=== PATIENT | male | born 1980 | race Caucasian/White ===

== ENCOUNTER 2019-01-27 17:09 | Emergency (ER) | payer OTHER ==
[2019-01-27 17:20] VITALS: BP 135/81; PULSE 108; RESP 18; TEMP 98.1
--- NOTE | 2019-01-27 17:55 | ED ---
General Adult HPI - General Chief complaint: Wound/Laceration Stated complaint: Bed frame fell on his head Source: patient, RN notes reviewed Mode of arrival: ambulatory Limitations: no limitations - History of Present Illness Initial comments: 38-year-old male with a past medical history of hyperlipidemia, seizure disorder presents to the emergency room for a chief of head injury. Patient states that about an hour prior to arrival he was carrying a bed frame with someone that was tolerable and him. States the frame was over his head. States that actually slipped and fell hitting him in the head. Patient did not lose consciousness. Patient does not have a headache. No blood thinners. Patient is up-to-date on tetanus in the past 5 years.Patient has no other complaints at this time including shortness of breath, chest pain, abdominal pain, nausea or vomiting, headache, or visual changes. - Related Data Allergies Allergy/AdvReac Type Severity Reaction Status Date / Time No Known Allergies Allergy Verified 01/27/19 17:20 Review of Systems ROS Statement: Those systems with pertinent positive or pertinent negative responses have been documented in the HPI. ROS Other: All systems not noted in ROS Statement are negative. Past Medical History Past Medical History: Hyperlipidemia, Seizure Disorder History of Any Multi-Drug Resistant Organisms: None Reported Past Surgical History: No Surgical Hx Reported Past Psychological History: No Psychological Hx Reported Smoking Status: Never smoker Past Alcohol Use History: None Reported Past Drug Use History: None Reported General Exam Limitations: no limitations General appearance: alert, in no apparent distress Head exam: Present: normocephalic. Absent: atraumatic (Laceration present to the left anterior scalp. This is about 5 cm. Deep structures intact.) Eye exam: Present: normal appearance, PERRL, EOMI. Absent: scleral icterus, conjunctival injection, periorbital swelling ENT exam: Present: normal exam, mucous membranes moist Neck exam: Present: normal inspection, full ROM. Absent: tenderness, meningismus, lymphadenopathy Respiratory exam: Present: normal lung sounds bilaterally. Absent: respiratory distress, wheezes, rales, rhonchi, stridor Cardiovascular Exam: Present: regular rate, normal rhythm, normal heart sounds. Absent: systolic murmur, diastolic murmur, rubs, gallop, clicks Neurological exam: Present: alert, oriented X3, CN II-XII intact, normal gait, other (gcs 15) Course Vital Signs 01/27/19 17:15 Temperature 98.1 F Pulse Rate 108 H Respiratory 18 Rate Blood Pressure 135/81 O2 Sat by Pulse 96 Oximetry Procedures - Laceration Laceration #1 Consent Obtained: verbal consent Indication: laceration Site: scalp Size (cm): 5 Description: linear Depth: simple, single layer Pre-repair: wound explored, irrigated extensively (with salne pressure irrigation), deep structures intact Type of Sutures: other (snow) Number of Sutures: 5 Technique: simple, interrupted Patient Tolerated Procedure: well, no complications Medical Decision Making - Medical Decision Making 38-year-old male presents for laceration to the scalp. Patient states that a bed frame hit him in the head when his friend was tolerable him was holding about him. No loss of consciousness. No headache. No neck pain. Patient states he is only here for laceration repair. I recommended CT however he refused this. He is aware of the risks. Wound was cleaned thoroughly. It was then repaired with snow. I did offer to numb the area which he refused. Tetanus is up-to-date. Discussed return parameters including those for infection and head injury. Discussed following up with primary care in 1-2 days. Disposition Clinical Impression: Laceration Disposition: HOME SELF-CARE Condition: Good Instructions (If sedation given, give patient instructions): Laceration (ED), Head Injury (ED) Additional Instructions: Please take Tylenol for pain. Monitor for signs of infection and return if these occur. Return if you have any other worsening symptoms such as severe headache, confusion, vomiting. Otherwise follow-up with primary care in 1-2 days for wound recheck. Return in 7-10 days for staple removal. Is patient prescribed a controlled substance at d/c from ED?: No Referrals: Nonstaff,Physician [Primary Care Provider] - 1-2 days Time of Disposition: 17:54
== END 2019-01-27 17:58 | disposition home or self-care (01) ==
LOC: EC 17:09
DX: S01.01XA Laceration without foreign body of scalp, initial encounter (principal); W20.8XXA Other cause of strike by thrown, projected or falling object, initial encounter
CPT/HCPCS: 12002; 99283

== ENCOUNTER 2019-02-22 16:35 | Emergency (ER) | payer OTHER ==
[2019-02-22] MEDS ORDERED: SODIUM CHLORIDE 0.9% 1,000 ML IV STA (17:06)
[2019-02-22] MEDS ORDERED: FLUoxetine HCL 20 MG CAP PO STA (17:06)
[2019-02-22] MEDS ORDERED: carBAMazepine 200 MG TAB PO STA (17:06)
[2019-02-22 17:48] LABS: Basophils % (A) 0 %; Eosinophils # (A) 0.2 k/uL (0-0.7); Eosinophils % (A) 5 %; HCT 44.3 % (39.0-53.0); HGB 15.6 gm/dL (13.0-17.5); Lymphocytes # (A) 1.9 k/uL (1.0-4.8); Lymphocytes % (A) 41 %; MCH 30.3 pg (25.0-35.0); MCHC 35.1 g/dL (31.0-37.0); MCV 86.2 fL (80.0-100.0); Mean Platelet Volume 7.3; Monocytes # (A) 0.2 k/uL (0-1.0); Monocytes % (A) 5 %; Neutrophils # (A) 2.2 k/uL (1.3-7.7); Neutrophils % (A) 48 %; Platelet Count 222 k/uL (150-450); RBC 5.14 m/uL (4.30-5.90); WBC 4.6 k/uL (3.8-10.6)
[2019-02-22 17:53] LABS: Appearance,Urine Clear (Clear); Bilirubin,Urine Negative (Negative); Blood,Urine Negative (Negative); Color,Urine Yellow; Glucose,Urine (UA) Negative (Negative); Ketones,Urine Negative (Negative); Leukocyte Esterase,Urine Negative (Negative); Nitrite,Urine Negative (Negative); Protein,Urine Trace (Negative); Specific Gravity,Urine 1.026 (1.001-1.035); Urobilinogen,Urine <2.0 mg/dL (<2.0)
[2019-02-22 17:54] LABS: Prothrombin Time 10.8 sec (9.0-12.0)
--- NOTE | 2019-02-22 17:59 | ED ---
Dizziness HPI - General Chief Complaint: Dizziness Stated Complaint: medication refill Time Seen by Provider: 02/22/19 16:54 Source: patient, RN notes reviewed, old records reviewed Mode of arrival: ambulatory Limitations: no limitations - History of Present Illness Initial Comments: Patient's a 38-year-old male presents emergency room stay with dizziness and lightheadedness. Patient reports that he has been out of his seizure medication 2 days. He reports his Tegretol. He is also been out of Prozac for a month. Patient reports that he is just been feeling highly emotional. Patient states that he has had some episodes of blurry vision, also complains of some occasional abdominal pains, multiple complaints. Patient states that he's had no fevers or chills. - Related Data Previous Rx's Medication Instructions Recorded FLUoxetine HCL [PROzac] 40 mg PO DAILY #14 cap 02/22/19 carBAMazepine [TEGretol] 400 mg PO Q12H #28 tablet 02/22/19 Allergies Allergy/AdvReac Type Severity Reaction Status Date / Time No Known Allergies Allergy Verified 02/22/19 16:44 Review of Systems ROS Statement: Those systems with pertinent positive or pertinent negative responses have been documented in the HPI. ROS Other: All systems not noted in ROS Statement are negative. Past Medical History Past Medical History: Hyperlipidemia, Seizure Disorder History of Any Multi-Drug Resistant Organisms: None Reported Past Surgical History: No Surgical Hx Reported Past Psychological History: No Psychological Hx Reported Smoking Status: Never smoker Past Alcohol Use History: None Reported Past Drug Use History: None Reported General Exam - General Exam Comments Initial Comments: 38-year-old male. Alert and oriented 3. No significant distress. Limitations: no limitations General appearance: alert, in no apparent distress Head exam: Present: atraumatic, normocephalic, normal inspection Eye exam: Present: normal appearance, PERRL, EOMI. Absent: scleral icterus, conjunctival injection, periorbital swelling ENT exam: Present: normal exam Neck exam: Present: normal inspection. Absent: tenderness, meningismus, lymphadenopathy Respiratory exam: Present: normal lung sounds bilaterally. Absent: respiratory distress, wheezes, rales, rhonchi, stridor Cardiovascular Exam: Present: regular rate, normal rhythm, normal heart sounds. Absent: systolic murmur, diastolic murmur, rubs, gallop, clicks GI/Abdominal exam: Present: soft, normal bowel sounds. Absent: distended, tenderness, guarding, rebound, rigid Extremities exam: Present: normal inspection, full ROM, normal capillary refill. Absent: tenderness, pedal edema, joint swelling, calf tenderness Back exam: Present: normal inspection Neurological exam: Present: alert, oriented X3, CN II-XII intact Psychiatric exam: Present: normal affect, normal mood Skin exam: Present: warm, dry, intact, normal color. Absent: rash Course Vital Signs 02/22/19 16:45 Temperature 98.0 F Pulse Rate 60 Respiratory 18 Rate Blood Pressure 112/64 O2 Sat by Pulse 98 Oximetry Medical Decision Making - Medical Decision Making 38-year-old male presents today for alcohol withdrawal from medications as well as dizziness. Is no neurological deficits. EKG is unremarkable. Patient's labwork was reviewed and unremarkable. Discussed likely symptoms seem be related to medication withdrawal has been out of Prozac for the past month and Tegretol the past 2 days. Doses and emergency arm. He was reevaluated sleeping in bed. Appears in no distress. Discussed following up with his primary care doctor for further prescriptions but we'll give the Patient medication refills at this time. TRANSFER RETURN PARAMETERS WERE DISCUSSED. - Lab Data Result diagrams: 02/22/19 17:38 02/22/19 17:38 Lab Results 02/22/19 02/22/19 02/22/19 Range/Units 17:38 17:38 17:38 WBC 4.6 (3.8-10.6) k/uL RBC 5.14 (4.30-5.90) m/uL Hgb 15.6 (13.0-17.5) gm/dL Hct 44.3 (39.0-53.0) % MCV 86.2 (80.0-100.0) fL MCH 30.3 (25.0-35.0) pg MCHC 35.1 (31.0-37.0) g/dL RDW 12.0 (11.5-15.5) % Plt Count 222 (150-450) k/uL Neutrophils % 48 % Lymphocytes % 41 % Monocytes % 5 % Eosinophils % 5 % Basophils % 0 % Neutrophils # 2.2 (1.3-7.7) k/uL Lymphocytes # 1.9 (1.0-4.8) k/uL Monocytes # 0.2 (0-1.0) k/uL Eosinophils # 0.2 (0-0.7) k/uL Basophils # 0.0 (0-0.2) k/uL PT 10.8 (9.0-12.0) sec INR 1.0 (<1.2) Sodium 141 (137-145) mmol/L Potassium 4.5 (3.5-5.1) mmol/L Chloride 110 H (98-107) mmol/L Carbon Dioxide 23 (22-30) mmol/L Anion Gap 8 mmol/L BUN 12 (9-20) mg/dL Creatinine 0.73 (0.66-1.25) mg/dL Est GFR (CKD-EPI)AfAm >90 (>60 ml/min/1.73 sqM) Est GFR (CKD-EPI)NonAf >90 (>60 ml/min/1.73 sqM) Glucose 98 (74-99) mg/dL Calcium 9.0 (8.4-10.2) mg/dL Total Bilirubin 0.6 (0.2-1.3) mg/dL AST 30 (17-59) U/L ALT 23 (4-49) U/L Alkaline Phosphatase 81 (38-126) U/L Total Protein 7.7 (6.3-8.2) g/dL Albumin 4.3 (3.5-5.0) g/dL Urine Color Urine Appearance (Clear) Urine pH (5.0-8.0) Ur Specific [place] (1.001-1.035) Urine Protein (Negative) Urine Glucose (UA) (Negative) Urine Ketones (Negative) Urine Blood (Negative) Urine Nitrite (Negative) Urine Bilirubin (Negative) Urine Urobilinogen (<2.0) mg/dL Ur Leukocyte Esterase (Negative) 02/22/19 Range/Units 17:38 WBC (3.8-10.6) k/uL RBC (4.30-5.90) m/uL Hgb (13.0-17.5) gm/dL Hct (39.0-53.0) % MCV (80.0-100.0) fL MCH (25.0-35.0) pg MCHC (31.0-37.0) g/dL RDW (11.5-15.5) % Plt Count (150-450) k/uL Neutrophils % % Lymphocytes % % Monocytes % % Eosinophils % % Basophils % % Neutrophils # (1.3-7.7) k/uL Lymphocytes # (1.0-4.8) k/uL Monocytes # (0-1.0) k/uL Eosinophils # (0-0.7) k/uL Basophils # (0-0.2) k/uL PT (9.0-12.0) sec INR (<1.2) Sodium (137-145) mmol/L Potassium (3.5-5.1) mmol/L Chloride (98-107) mmol/L Carbon Dioxide (22-30) mmol/L Anion Gap mmol/L BUN (9-20) mg/dL Creatinine (0.66-1.25) mg/dL Est GFR (CKD-EPI)AfAm (>60 ml/min/1.73 sqM) Est GFR (CKD-EPI)NonAf (>60 ml/min/1.73 sqM) Glucose (74-99) mg/dL Calcium (8.4-10.2) mg/dL Total Bilirubin (0.2-1.3) mg/dL AST (17-59) U/L ALT (4-49) U/L Alkaline Phosphatase (38-126) U/L Total Protein (6.3-8.2) g/dL Albumin (3.5-5.0) g/dL Urine Color Yellow Urine Appearance Clear (Clear) Urine pH 6.0 (5.0-8.0) Ur Specific [place] 1.026 (1.001-1.035) Urine Protein Trace H (Negative) Urine Glucose (UA) Negative (Negative) Urine Ketones Negative (Negative) Urine Blood Negative (Negative) Urine Nitrite Negative (Negative) Urine Bilirubin Negative (Negative) Urine Urobilinogen <2.0 (<2.0) mg/dL Ur Leukocyte Esterase Negative (Negative) 02/22/19 17:59 EKG reviewed shows sinus rhythm, normal EKG. Ventricular rate of 61 bpm. Verbal is 156 most seconds. QRS ration is 94 ms. QT QTc is 400/42 ms. Disposition Clinical Impression: Medication refill, Medication withdrawal, Dizziness Disposition: HOME SELF-CARE Condition: Good Instructions (If sedation given, give patient instructions): Dizziness (ED) Additional Instructions: Take medications as prescribed. Follow-up with primary care doctor as directed. Return to the emergency department if any alarming signs or symptoms occur. Prescriptions: FLUoxetine HCL [PROzac] 40 mg PO DAILY #14 cap carBAMazepine [TEGretol] 400 mg PO Q12H #28 tablet Is patient prescribed a controlled substance at d/c from ED?: No Referrals: Rey Magdaleno MD [Primary Care Provider] - 1-2 days Time of Disposition: 18:35
[2019-02-22 18:01] LABS: ALT 23 U/L (4-49); AST 30 U/L (17-59); African American GFR (CKD) >90 (>60 ml/min/1.73 sqM); Albumin 4.3 g/dL (3.5-5.0); Alkaline Phosphatase 81 U/L (38-126); Anion Gap 8 mmol/L; Blood Urea Nitrogen 12 mg/dL (9-20); Carbon Dioxide 23 mmol/L (22-30); Chloride 110 mmol/L (98-107); Glucose 98 mg/dL (74-99); Non-African American GFR(CKD) >90 (>60 ml/min/1.73 sqM); Potassium 4.5 mmol/L (3.5-5.1); Sodium 141 mmol/L (137-145); Total Bilirubin 0.6 mg/dL (0.2-1.3); Total Protein 7.7 g/dL (6.3-8.2)
[2019-02-22 19:01] VITALS: BP 136/78; PULSE 76; RESP 19; TEMP 97.7
== END 2019-02-22 19:01 | disposition home or self-care (01) ==
LOC: EC 16:35
DX: F19.939 Other psychoactive substance use, unspecified with withdrawal, unspecified (principal); F15.93 Other stimulant use, unspecified with withdrawal; Z76.0 Encounter for issue of repeat prescription
CPT/HCPCS: 36415; 80053; 81003; 85025; 85610; 93005; 96360; 99284

== ENCOUNTER 2019-03-04 19:01 | Emergency (ER) | payer OTHER ==
[2019-03-04 19:19] VITALS: TEMP 98.5
[2019-03-04] MEDS ORDERED: carBAMazepine 200 MG TAB PO STA (19:50)
--- NOTE | 2019-03-04 19:52 | ED ---
General Adult HPI - General Chief complaint: Recheck/Abnormal Lab/Rx Stated complaint: seizure med refill Time Seen by Provider: 03/04/19 19:29 Source: patient Mode of arrival: ambulatory Limitations: no limitations - History of Present Illness Initial comments: 38-year-old male patient presents to the emergency department today requesting refill on his seizure medication. Patient states he has not had his Tegretol for the last 3 days. Patient states he is having to feel odd due to this. He states he has a mild headache. He is a bit light sensitive. He denies any seizure activity. Denies any numbness, tingling, weakness to his extremities. Patient denies any recent rash, fever, chills, shortness breath, chest pain, abdominal pain, nausea, vomiting, diarrhea, constipation, back pain, numbness, tingling, dizziness, weakness, hematuria, dysuria, urinary urgency, urinary frequency, or any other complaints. - Related Data Previous Rx's Medication Instructions Recorded FLUoxetine HCL [PROzac] 40 mg PO DAILY #14 cap 02/22/19 carBAMazepine [TEGretol] 400 mg PO Q12H #28 tablet 02/22/19 carBAMazepine [TEGretol XR] 400 mg PO Q12HR #60 tab.er.12h 03/04/19 Allergies Allergy/AdvReac Type Severity Reaction Status Date / Time No Known Allergies Allergy Verified 03/04/19 19:17 Review of Systems ROS Statement: Those systems with pertinent positive or pertinent negative responses have been documented in the HPI. ROS Other: All systems not noted in ROS Statement are negative. Past Medical History Past Medical History: Hyperlipidemia, Seizure Disorder History of Any Multi-Drug Resistant Organisms: None Reported Past Surgical History: No Surgical Hx Reported Past Psychological History: No Psychological Hx Reported Smoking Status: Current every day smoker Past Alcohol Use History: None Reported Past Drug Use History: None Reported General Exam Limitations: no limitations General appearance: alert, in no apparent distress, other (Physical well- developed, well-nourished adult male patient in no acute distress. Vital signs upon presentation are temperature 98.5F, pulse 85, respirations 16, blood pressure 146/74, pulse ox 98% on room air.) Eye exam: Present: normal appearance, PERRL, EOMI. Absent: scleral icterus, conjunctival injection, nystagmus, periorbital swelling Respiratory exam: Present: normal lung sounds bilaterally. Absent: respiratory distress, wheezes, rales, rhonchi, stridor Cardiovascular Exam: Present: regular rate, normal rhythm, normal heart sounds. Absent: systolic murmur, diastolic murmur, rubs, gallop, clicks GI/Abdominal exam: Present: soft, normal bowel sounds. Absent: distended, tenderness, guarding, rebound, rigid Neurological exam: Present: alert, oriented X3, CN II-XII intact, other (Strength in all 4 extremities is 5/5.) Psychiatric exam: Present: normal affect, normal mood Skin exam: Present: warm, dry, intact, normal color. Absent: rash Course Vital Signs 03/04/19 19:15 Temperature 98.5 F Pulse Rate 85 Respiratory 16 Rate Blood Pressure 146/74 O2 Sat by Pulse 98 Oximetry Medical Decision Making - Medical Decision Making 38-year-old male patient presents to the emergency room today for medication refill. He is out of his Tegretol for the last 3 days. He has had no seizure activity. Physical examination is unremarkable. He is neurologically intact with no focal deficits. We will give a dose of Tegretol here and discharged with a prescription until he is able to follow-up with his primary care physician. Return parameters discussed in detail. He verbalizes understanding and agrees with this plan. Disposition Clinical Impression: Medication refill Disposition: HOME SELF-CARE Condition: Good Instructions (If sedation given, give patient instructions): Medicine Refill (ED) Additional Instructions: Take medications as directed. HER primary care physician for recheck as soon as possible. Return to the emergency department immediately for any new, worsening, or concerning symptoms. Prescriptions: carBAMazepine [TEGretol XR] 400 mg PO Q12HR #60 tab.er.12h Is patient prescribed a controlled substance at d/c from ED?: No Referrals: Rey Magdaleno MD [Primary Care Provider] - 1-2 days Time of Disposition: 19:51
[2019-03-04 20:53] VITALS: BP 133/73; PULSE 79; RESP 15
== END 2019-03-04 20:57 | disposition home or self-care (01) ==
LOC: EC 19:01
DX: Z76.0 Encounter for issue of repeat prescription (principal); R51 Headache; F17.200 Nicotine dependence, unspecified, uncomplicated
CPT/HCPCS: 99281

== ENCOUNTER 2020-07-26 18:14 | Emergency (ER) | payer OTHER ==
--- NOTE | 2020-07-26 19:20 | ED ---
General Adult HPI - General Chief complaint: Back Pain/Injury Stated complaint: back/leg pain Time Seen by Provider: 07/26/20 18:37 Source: patient, RN notes reviewed Mode of arrival: wheelchair Limitations: no limitations - History of Present Illness Initial comments: Patient is a pleasant 40-year-old male presenting to the emergency department with concerns for sciatic pain. Patient did have some discomfort in the left side around a month ago. This lasted for around a week and resolved. Patient now is having discomfort on the right side. Discomfort starts right sacral region and extends down the right leg. No weakness. No loss of sensation. Patient also has some very mild discomfort of his left calf and would like ultrasound done for that. No chest pain or dyspnea. No loss of control of bowel or bladder. - Related Data Home Medications Medication Instructions Recorded Confirmed Atorvastatin [Lipitor] 40 mg PO DAILY 03/04/19 03/04/19 busPIRone HCL [Buspar] 15 mg PO DAILY 03/04/19 03/04/19 Previous Rx's Medication Instructions Recorded FLUoxetine HCL [PROzac] 40 mg PO DAILY #14 cap 02/22/19 carBAMazepine [TEGretol] 400 mg PO Q12H #28 tablet 02/22/19 carBAMazepine [TEGretol XR] 400 mg PO Q12HR #60 tab.er.12h 03/04/19 Cyclobenzaprine [Flexeril] 10 mg PO TID PRN #12 tablet 07/26/20 predniSONE [Deltasone] 20 mg PO BID #10 tab 07/26/20 Allergies Allergy/AdvReac Type Severity Reaction Status Date / Time No Known Allergies Allergy Verified 07/26/20 18:28 Review of Systems ROS Statement: Those systems with pertinent positive or pertinent negative responses have been documented in the HPI. ROS Other: All systems not noted in ROS Statement are negative. Constitutional: Denies: fever Eyes: Denies: eye pain ENT: Denies: ear pain Respiratory: Denies: cough Cardiovascular: Denies: chest pain Endocrine: Denies: fatigue Gastrointestinal: Denies: abdominal pain Genitourinary: Denies: urgency Musculoskeletal: Reports: as per HPI Skin: Denies: rash Neurological: Denies: weakness, numbness, paresthesias Past Medical History Past Medical History: Hyperlipidemia, Seizure Disorder History of Any Multi-Drug Resistant Organisms: None Reported Past Surgical History: No Surgical Hx Reported Past Psychological History: No Psychological Hx Reported Smoking Status: Current some day smoker Past Alcohol Use History: None Reported Past Drug Use History: None Reported General Exam Limitations: no limitations General appearance: alert, in no apparent distress Head exam: Present: normocephalic Eye exam: Present: normal appearance Neck exam: Present: normal inspection Respiratory exam: Present: normal lung sounds bilaterally Cardiovascular Exam: Present: regular rate, normal rhythm Expanded Peripheral pulses: 2+: Dorsalis Pedis (R), Dorsalis Pedis (L) GI/Abdominal exam: Present: soft. Absent: distended, tenderness Extremities exam: Present: calf tenderness (Minimal left proximal Calf) Back exam: Present: other (Mild tenderness right sacral region). Absent: vertebral tenderness Neurological exam: Present: alert. Absent: motor sensory deficit Expanded Sensory exam: Lower Extremity Light Touch: Normal Motor strength exam: RLE: 5, LLE: 5 Psychiatric exam: Present: normal affect, normal mood Skin exam: Present: normal color. Absent: erythema Course Vital Signs 07/26/20 18:26 Temperature 98.3 F Pulse Rate 85 Respiratory 18 Rate Blood Pressure 130/85 O2 Sat by Pulse 97 Oximetry Medical Decision Making - Medical Decision Making Patient reevaluated and updated - Radiology Data Radiology results: report reviewed (APPEARS NEGATIVE FOR DVT) Disposition Clinical Impression: Sciatica Disposition: HOME SELF-CARE Condition: Stable Instructions (If sedation given, give patient instructions): Acute Low Back Pain (ED) Additional Instructions: Please do follow-up to primary care physician in the next couple days for recheck. Prescription for steroids and muscle relaxers has been sent to your pharmacy. [id number] Motrin as needed. Return for increased pain, weakness, loss of control of bowel or bladder, worsening or change in symptoms or other concerns or fevers. Prescriptions: predniSONE [Deltasone] 20 mg PO BID #10 tab Cyclobenzaprine [Flexeril] 10 mg PO TID PRN #12 tablet PRN Reason: Pain Is patient prescribed a controlled substance at d/c from ED?: No Referrals: Rey Magdaleno MD [Primary Care Provider] - 1-2 days Time of Disposition: 20:15
[2020-07-26] MEDS ORDERED: KETOROLAC 15 MG/ML 1 ML VIAL IM STA (19:29)
[2020-07-26] MEDS ORDERED: KETOROLAC 15 MG/ML 1 ML VIAL ONE (19:30)
--- NOTE | 2020-07-26 20:06 | US ---
EXAMINATION TYPE: US venous doppler duplex LE LT DATE OF EXAM: 07/26/2020 7:19 PM COMPARISON: NONE CLINICAL HISTORY: Left leg pain x 1 month. SIDE PERFORMED: Left TECHNIQUE: The lower extremity deep venous system is examined utilizing real time linear array sonog olivia with graded compression, doppler sonography and color-flow sonography. VESSELS IMAGED: Common Femoral Vein Deep Femoral Vein Greater Saphenous Vein * Femoral Vein Popliteal Vein Small Saphenous Vein * Proximal Calf Veins (* superficial vessels) Left Leg: Appears negative for DVT IMPRESSION: No sign of deep vein thrombosis in the left leg.
[2020-07-26 20:48] VITALS: BP 121/81; PULSE 81; RESP 16; TEMP 98
== END 2020-07-26 20:45 | disposition home or self-care (01) ==
LOC: EC 18:14
DX: M54.32 Sciatica, left side (principal); M54.31 Sciatica, right side; E78.5 Hyperlipidemia, unspecified; G40.909 Epilepsy, unspecified, not intractable, without status epilepticus; Z79.52 Long term (current) use of systemic steroids; F17.200 Nicotine dependence, unspecified, uncomplicated
CPT/HCPCS: 93971; 99283; 96372; J1885